=== PATIENT | female | born 1960 | race Hispanic/Latino ===

== ENCOUNTER 2024-08-23 08:57 | Emergency (ER) | payer MEDICARE ==
[2024-08-23] MEDS ORDERED: ONDANSETRON 4 MG/2 ML VIAL ONE (09:17)
[2024-08-23] MEDS ORDERED: NA CHLORIDE 0.9% 1,000 ML ONE (09:18)
[2024-08-23 09:44] LABS: Absolute Basophils 0.1 K/uL (0-0.5); Absolute Eosinophils 0.2 K/uL (0-0.5); Absolute Lymphocytes (CBC) 1.3 K/uL (0.7-4.9); Absolute Monocytes 0.7 K/uL (0.1-1.3); Eosinophils % 2.6 % (0-4.4); Hematocrit 38.3 % (36.0-45.0); Hemoglobin 13.1 g/dL (12.0-15.0); MCH 29.7 pg (27.0-35.0); MCHC 34.2 g/dL (32.0-36.0); MCV 86.7 fL (80-100); MPV 8.2 fL (7.6-11.3); Monocytes % 7.7 % (3.3-12.3); Neutrophils % 74.7 % (41.7-73.7); Nucleated Red Blood Cells % 0.2 % (0-0); Platelets 278 thou/uL (152-406); RBC Red Blood Cell Count 4.42 M/uL (3.86-4.86); Red Cell Distribution Width 13.5 % (12.1-15.2)
[2024-08-23 09:48] LABS: Specific Gravity > 1.030 (1.005-1.030); Sqamous Epithelial None Seen /HPF (None Seen); Urine Bacteria None Seen /HPF (<20); Urine Bilirubin 1+ (Negative); Urine Blood 3+ (Negative); Urine Clarity Turbid (Clear); Urine Color Yellow (Yellow); Urine Culture Reflex Order NOT NEEDED; Urine Glucose NEGATIVE (Negative); Urine Ketones 4+ (Over) (Negative); Urine Microscopic Reflex YN ORDER UMIC; Urine Mucus 4+ /HPF (None Seen); Urine Nitrite NEGATIVE (Negative); Urine Protein 1+ (Negative); Urine Urobilinogen 1+ (Normal); Urine WBC <5 /HPF (<5); Urine Yeast (Budding) Trace /HPF (None Seen); Urine pH 5.5 (5.0-7.0)
[2024-08-23 10:03] LABS: SARS-CoV-2 Antigen CONTROL BLUE LINE VIS/BG OK; SARS-CoV-2 Antigen Rapid Res Negative (Negative)
[2024-08-23 10:06] LABS: Albumin 3.3 g/dL (3.4-5.0); Albumin/Globulin Ratio 0.8 (1.1-1.8); Anion Gap 11.3 mEq/L (5.0-15.0); Bilirubin Total 0.8 mg/dL (0.2-1.0); Globulin 4.1 g/dL (2.3-3.5); Potassium 3.3 mEq/L (3.5-5.1); Protein, Total 7.4 g/dL (6.4-8.2)
--- NOTE | 2024-08-23 10:09 | EDPHYS ---
Physician Documentation [facility] Name: Elzbieta Guerrero Age: 64 yrs Sex: Female : 1960 Arrival Date: 08/23/2024 Time: 08:57 Bed 14 Private MD: ED Physician Ric Hernández HPI: 08/23 09:17 This 64 yrs old Female presents to ER via Ambulatory with complaints of ec2 dehydration, Diarrhea, Fever. 09:17 Patient arrives today for evaluation of nausea as well as diarrhea. Patient reports ec2 that she has been having symptoms ongoing for the past several days. Reports decreased p.o. intake. Reports generalized abdominal cramping. Reports initial cough and cold symptoms last week, states she has similar sick contacts at home.. Historical: - Allergies: 09:06 Stadol; vc1 - PMHx: 09:06 Hypothyroidism; Hypertensive disorder; GERD; vc1 - PSHx: 09:06 Cholecystectomy; vc1 - Immunization history:: Adult Immunizations not up to date, Adult Immunizations up to date. - Infectious Disease History:: Denies. - Social history:: Smoking status: Patient denies any tobacco usage or history of. ROS: 09:17 Constitutional: as per hpi ec2 Exam: 09:17 Constitutional: GEN: NAD Head: atraumatic Eyes: EOMI Ears: External ears are ec2 normal. CV: regular rate LUNGS: no respiratory distress ABD: non-distended, soft, not guarding, not rigid SKIN: no evidence of rashes MSK: no evidence of trauma Vital Signs: 09:05 BP 131 / 84; Pulse 88; Resp 16; Pulse Ox 98% on R/A; Weight 74.84 kg; Height 5 ft. 1 vc1 in. ; 09:10 Temp 98.6; Pain 0/10; mb9 10:37 BP 120 / 81; Pulse 74; Resp 16; Pulse Ox 100% on R/A; mb9 09:05 Body Mass Index 31.18 (74.84 kg, 154.94 cm) vc1 09:10 Pain Scale: Adult mb9 MDM: 09:15 Patient medically screened. ec2 09:17 Data reviewed: vital signs. ED course: Patient arrives today for evaluation of ec2 decreased p.o. intake along with nausea and diarrhea. Examination remarkable for well-appearing nontoxic individuals otherwise in no acute distress with a reassuring examination. Will obtain lab work, urine studies and treat the patient with crystalloid as well as antiemetic. Differential diagnosis includes gastroenteritis, lower suspicion for process such as acute appendicitis or cholecystitis. Accordingly we will forego imaging such as CT of the abdomen pelvis with contrast.. 09:55 ED course: Urine shows ketonuria, consistent with patient's poor p.o. intake. . ec2 08/23 09:16 Order name: CBC with Diff; Complete Time: 09:54 ec2 08/23 09:16 Order name: CMP; Complete Time: 10:08 ec2 08/23 09:16 Order name: Lipase; Complete Time: 10:08 ec2 08/23 09:16 Order name: Urinalysis w/ reflexes; Complete Time: 09:54 ec2 08/23 09:17 Order name: Influenza Screen (a \T\ B); Complete Time: 10:06 ec2 08/23 09:17 Order name: SARS RAPID; Complete Time: 10:06 ec2 08/23 09:16 Order name: IV Saline Lock; Complete Time: 09:31 ec2 08/23 09:16 Order name: Labs collected and sent; Complete Time: 09:31 ec2 Administered Medications: 09:25 Drug: Ondansetron IVP 4 mg IVP once; over 2 minutes Route: IVP; Site: left antecubital; mb9 10:18 Follow up: Response: No adverse reaction mb9 09:31 Drug: NS 0.9% IV 1000 ml IV at 1 bolus Per protocol; 1000 mL bolus Route: IV; Rate: 1 mb9 bolus; Site: left antecubital; 10:17 Follow up: Response: No adverse reaction; IV Status: Completed infusion mb9 10:24 Drug: Potassium Chloride PO 40 mEq PO once Route: PO; mb9 10:38 Follow up: Response: No adverse reaction mb9 Disposition Summary: 08/23/24 10:08 Discharge Ordered Notes: Location: Home ec2 Condition: Stable ec2 Diagnosis - Infectious gastroenteritis and colitis, unspecified ec2 - Dehydration ec2 Followup: ec2 - With: Private Physician - When: - Reason: Re-evaluation by your physician Discharge Instructions: - Discharge Summary Sheet ec2 - Viral Gastroenteritis, Adult ec2 Forms: - Work release form ec2 - Medication Reconciliation Form ec2 - Antibiotic Education ec2 - Prescription Opioid Use ec2 - Patient Portal Instructions ec2 - Leadership Thank You Letter ec2 Prescriptions: - Zofran 4 mg Oral Tablet - take 1 tablet ORAL route every 12 hours As needed; 20 tablet; Refills: 0, ec2 Product Selection Permitted - dicyclomine 10 mg Oral capsule - take 1 capsule ORAL route 3 times per day; 20 capsule; Refills: 0, Product ec2 Selection Permitted Signatures: Dispatcher [employer] EDNM Lorena Wells RN RN vc1 La Garcia RN RN mb9 Ric Hernández MD MD ec2 Corrections: (The following items were deleted from the chart) 09:16 09:16 CBC+H.LAB.BRZ ordered. EDMS EDMS 09:16 09:16 COMPREHENSIVE METABOLIC PANEL+C.LAB.BRZ ordered. EDMS EDMS 09:16 09:16 LIPASE+C.LAB.BRZ ordered. EDMS EDMS 09:16 09:16 Urinalysis+U.LAB.BRZ ordered. EDMS EDMS 09:18 09:18 Influenza Screen (A \T\ B)+BA.LAB.BRZ ordered. EDMS EDMS 09:18 09:18 SARS-COV-2 Antigen Rapid+I.LAB.BRZ ordered. EDMS EDMS
--- NOTE | 2024-08-23 10:09 | ER ---
Nurse's Notes [facility] Name: Elzbieta Guerrero Age: 64 yrs Sex: Female : 1960 Arrival Date: 08/23/2024 Time: 08:57 Bed 14 Private MD: Diagnosis: Infectious gastroenteritis and colitis, unspecified;Dehydration Presentation: 08/23 09:05 Chief complaint: Patient states: diarrhea since Wednesday and fever on Wednesday , feels vc1 dehydrated, + nausea no vomiting. Coronavirus screen: Client presents with at least one sign or symptom that may indicate coronavirus-19. Ebola Screen: No symptoms or risks identified at this time. Initial Sepsis Screen: Does the patient meet any 2 criteria? No. Patient's initial sepsis screen is negative. Does the patient have a suspected source of infection? No. Patient's initial sepsis screen is negative. Risk Assessment: Do you want to hurt yourself or someone else? Patient reports no desire to harm self or others. Onset of symptoms was August 19, 2024. 09:05 Method Of Arrival: Ambulatory vc1 09:05 Acuity: [place] 3 vc1 Historical: - Allergies: 09:06 Stadol; vc1 - PMHx: 09:06 Hypothyroidism; Hypertensive disorder; GERD; vc1 - PSHx: 09:06 Cholecystectomy; vc1 - Immunization history:: Adult Immunizations not up to date, Adult Immunizations up to date. - Infectious Disease History:: Denies. - Social history:: Smoking status: Patient denies any tobacco usage or history of. Screenin:11 [facility] ED Fall Risk Assessment (Adult) History of falling in the last 3 months, mb9 including since admission No falls in past 3 months (0 pts) Confusion or Disorientation No (0 pts) Intoxicated or Sedated No (0 pts) Impaired Gait No (0 pts) Mobility Assist Device Used No (0 pt) Altered Elimination No (0 pt) Score/Fall Risk Level 0 - 2 = Low Risk Oriented to surroundings, Maintained a safe environment, Educated pt \T\ family on fall prevention, incl call for assistance when getting out of bed. Abuse screen: Denies threats or abuse. Nutritional screening: No deficits noted. Tuberculosis screening: No symptoms or risk factors identified. Assessment: 09:20 General: Appears uncomfortable, Behavior is cooperative. mb9 09:20 Pain: Denies pain. Neuro: Garber Agitation-Sedation Scale (RASS): 0 - Alert and Calm mb9 Level of Consciousness is awake, alert, obeys commands, Oriented to person, place, time, situation, Appropriate for age. Cardiovascular: Patient's skin is warm and dry. Respiratory: Airway is patent Respiratory effort is even, unlabored, Respiratory pattern is regular, symmetrical, Breath sounds are clear bilaterally. GI: Abdomen is round non-distended, Bowel sounds present X 4 quads. Abd is soft and non tender X 4 quads. Reports cramping, diarrhea. : No signs and/or symptoms were reported regarding the genitourinary system. EENT: No signs and/or symptoms were reported regarding the EENT system. Derm: Skin is pink, warm \T\ dry. Musculoskeletal: Range of motion: intact in all extremities. 10:37 Reassessment: Patient appears in no apparent distress at this time. No changes from mb9 previously documented assessment. Patient and/or family updated on plan of care and expected duration. Pain level reassessed. Patient is alert, oriented x 3, equal unlabored respirations, skin warm/dry/pink. Patient states feeling better. Patient states symptoms have improved. Vital Signs: 09:05 BP 131 / 84; Pulse 88; Resp 16; Pulse Ox 98% on R/A; Weight 74.84 kg; Height 5 ft. 1 vc1 in. ; 09:10 Temp 98.6; Pain 0/10; mb9 10:37 BP 120 / 81; Pulse 74; Resp 16; Pulse Ox 100% on R/A; mb9 09:05 Body Mass Index 31.18 (74.84 kg, 154.94 cm) vc1 09:10 Pain Scale: Adult mb9 ED Course: 08:59 Patient arrived in ED. im 09:01 Ric Hernández MD is Attending Physician. ec2 09:06 Triage completed. vc1 09:07 Arm band placed on. vc1 09:10 La Garcia RN is Primary Nurse. mb9 09:10 Bed in low position. Call light in reach. Side rails up X 1. Provided Education on: mb9 press call light if needing anything. Client placed on continuous cardiac and pulse oximetry monitoring. NIBP monitoring applied. 09:31 CBC with Diff Sent. mb9 09:31 CMP Sent. mb9 09:31 Lipase Sent. mb9 09:31 Initial lab(s) drawn, by wv, sent to lab. Inserted saline lock: 22 gauge in left mb9 antecubital area, using aseptic technique. Blood collected. Flushed with 10 mL NS. 09:49 No provider procedures requiring assistance completed. mb9 10:37 IV discontinued, intact, bleeding controlled, No redness/swelling at site. Pressure mb9 dressing applied. Administered Medications: 09:25 Drug: Ondansetron IVP 4 mg IVP once; over 2 minutes Route: IVP; Site: left antecubital; mb9 10:18 Follow up: Response: No adverse reaction mb9 09:31 Drug: NS 0.9% IV 1000 ml IV at 1 bolus Per protocol; 1000 mL bolus Route: IV; Rate: 1 mb9 bolus; Site: left antecubital; 10:17 Follow up: Response: No adverse reaction; IV Status: Completed infusion mb9 10:24 Drug: Potassium Chloride PO 40 mEq PO once Route: PO; mb9 10:38 Follow up: Response: No adverse reaction mb9 Medication: 09:11 VIS not applicable for this client. mb9 Outcome: 10:08 Discharge ordered by . ec2 10:38 Discharged to home ambulatory, mb9 10:38 Condition: stable 10:38 Discharge instructions given to patient, Instructed on discharge instructions, follow up and referral plans. Demonstrated understanding of instructions, follow-up care, medications, Prescriptions given X 2, 10:38 Patient left the ED. mb9 Signatures: Lorena Wells RN RN vc1 La Garcia RN RN mb9 Tanja Jimenez Edwin, MD MD ec2
[2024-08-23] MEDS ORDERED: POTASSIUM CL SA 10 MEQ TAB PO ONE (10:21)
[2024-08-23 11:01] VITALS: TEMP 98.6
[2024-08-23 11:04] VITALS: BP 120/81; O2SAT 100
== END 2024-08-23 10:38 | disposition home or self-care (01) ==
LOC: ER 08:57
DX: A09 Infectious gastroenteritis and colitis, unspecified (principal); E86.0 Dehydration; Z11.52 Encounter for screening for COVID-19
CPT/HCPCS: 36415; 80053; 81001; 83690; 85025; 87804; 87811; J2405; J7030